=== PATIENT | female | born 1960 | race Caucasian/White ===

== ENCOUNTER → 2016-12-19 | Outpatient (CLI) | payer OTHER ==
[~2016-12-19] MED LIST: BIAXIN500 MG PO; CLARITIN10 MG PO; HYDROCHLOROTHIA25 M1 PO; LOPRESSOR25 MG PO; PROTONIX40 MG PO; PROVENTIL0.09 MG/AC IH; ZOFRAN4 MG PO
== END | disposition home or self-care (01) ==
LOC: MAMMO 11:41
DX: Z12.31 Encounter for screening mammogram for malignant neoplasm of breast (principal)

== ENCOUNTER → 2016-12-30 | Day surgery (SDC) | payer OTHER ==
[~2016-12-30] VITALS: Ht 173.7 cm; Wt 113.4 kg
[~2016-12-30] MED LIST changes: +PRINIVIL10 MG PO
--- NOTE | ~2016-12-30 | PROC NOTE ---
[place], [place] PROCEDURE NOTE [id number] UN[facility] #: [id number] ROOM: DOCTOR: NOLAN BREWER MD BIRTHDATE: [birth year] DOS: 12/30/2016 PREOPERATIVE DIAGNOSIS: Screening examination. POSTOPERATIVE DIAGNOSIS: Colonic polyp (35 cm). PROCEDURE: Colonoscopy with polypectomy x 1. ENDOSCOPIST: Nolan Brewer MD OPHTHALMIC ASST: MS3. ANESTHESIA: MAC. INDICATIONS: This is a 56-year-old lady who is here for a screening examination. The procedure and complications were explained to her in detail preoperatively. Complications that were discussed included, but were not limited to, bleeding, infection, prolonged pain, colon perforation and missed lesions. She agreed to proceed. DESCRIPTION OF PROCEDURE: After identifying the patient, the patient was brought to the endoscopy suite and placed in the left lateral position. After time-out procedure was called, IV sedation was administered and a digital rectal exam was performed. This was within normal limits. An adult colonoscope was now introduced into the anal canal and advanced sequentially into the rectum, sigmoid colon, descending colon, transverse colon and ascending colon, up to the cecum. There was found to be a single polyp at 35 cm that was removed with the help of a snare and sent for histopathological diagnosis. Upon reaching the cecum, the scope was withdrawn. There were no other lesions that could be visualized. The scope was then withdrawn and the patient was taken to the recovery room in stable fashion. There were no complications. Dr. Nolan Brewer, the attending endoscopist was present throughout the operating case. Based on these findings, the patient is recommended to have another colonoscopy within 3-5 years. Nolan Brewer MD CM:PROCNOTE:PROCEDURE NOTE [id number] NOLAN BREWER MD
[2016-12-30 07:27] VITALS: BP 156/98
[2016-12-30 08:47] VITALS: BP 181/108
[2016-12-30 09:00] VITALS: BP 154/87
[2016-12-30 09:13] VITALS: BP 149/94
== END | disposition home or self-care (01) ==
LOC: SDC 12-27 12:30
DX: Z12.11 Encounter for screening for malignant neoplasm of colon (principal); K63.5 Polyp of colon; I10 Essential (primary) hypertension; Z88.8 Allergy status to other drugs, medicaments and biological substances; Z90.49 Acquired absence of other specified parts of digestive tract; Z98.890 Other specified postprocedural states; Z82.49 Family history of ischemic heart disease and other diseases of the circulatory system; F17.210 Nicotine dependence, cigarettes, uncomplicated

== ENCOUNTER → 2018-02-08 | Outpatient (CLI) | payer OTHER ==
[~2018-02-08] MED LIST changes: +K-TAB10 MEQ PO; +NORCO 5-325 TA1 EACH PO; +VITAMIN D5000 UNI1 PO; +ZYRTEC10 MG PO
--- NOTE | ~2018-02-08 | EKG ---
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
[2018-02-08 14:22] LABS: BASO % 0.4 % (0.0-1.0); EOS # 0.2 10*3/uL (0.0-0.4); EOS % 2.7 % (1.0-4.0); HEMATOCRIT 48.2 % (37.0-47.0); HEMOGLOBIN 15.8 g/dl (12.0-16.0); LYMPH # 1.9 10*3/uL (1.3-4.4); LYMPH % 26.4 % (27.0-41.0); MEAN CELL VOLUME 89.3 fl (81.0-99.0); MEAN CORPUSCULAR HGB 29.3 pg (27.0-31.0); MEAN CORPUSCULAR HGB CONC 32.8 g/dl (33.0-37.0); MONO # 0.5 10*3/uL (0.1-1.0); MONO % 6.3 % (3.0-9.0); NEUT # 4.6 10*3/uL (2.3-7.9); NEUT % 63.8 % (47.0-73.0); PLATELET COUNT AUTOMATED 250 10*3/uL (130-400); RED CELL DISTRI WIDTH 13.7 % (0-14.5); WHITE BLOOD COUNT 7.3 10*3/uL (4.8-10.8)
[2018-02-08 14:23] LABS: BILIRUBIN NEGATIVE (NEGATIVE); BLOOD NEGATIVE (NEGATIVE); CLARITY CLEAR (CLEAR); COLOR YELLOW (YELLOW); GLUCOSE NEGATIVE (NEGATIVE); KETONE TRACE (NEGATIVE); LEUKO ESTERASE NEGATIVE (NEGATIVE); NITRITE NEGATIVE (NEGATIVE); UROBILINOGEN 0.2 E.U./dl (0.2-1.0)
[2018-02-08 14:34] LABS: ACT PARTIAL THROMBO TIME 22.7 SECONDS (20.8-31.5); INTERNATIONAL NORM RATIO 0.9 (2.0-3.5)
[2018-02-08 14:39] LABS: ALBUMIN 3.9 gm/dl (3.1-4.5); BILIRUBIN, DIRECT < 0.1 mg/dL (0.0-0.2); BUN 14 mg/dl (7-24); CHLORIDE 103 mmol/L (98-107); CREATININE 0.75 mg/dL (0.55-1.02); POTASSIUM 3.6 mmol/L (3.5-5.1); SGOT/AST 29 IU/L (3-35); SGPT/ALT 49 U/L (12-78); SODIUM 141 mmol/L (136-145)
[2018-02-08 14:41] LABS: ALKALINE PHOSPHATASE 96 U/L (45-117); TOTAL PROTEIN 7.7 gm/dL (6.4-8.2)
[2018-02-08 14:49] LABS: BACTERIA 1+; MUCOUS 2+
== END | disposition home or self-care (01) ==
LOC: LAB 12:26
PROVIDERS: Surgery
DX: K80.80 Other cholelithiasis without obstruction (principal); Z87.891 Personal history of nicotine dependence

== ENCOUNTER → 2018-02-15 | Day surgery (SDC) | payer OTHER ==
[2018-02-08 12:59] VITALS: BP 170/89
[2018-02-15] VITALS (7 sets, daily range): BP systolic 119–162; BP diastolic 63–80
[~2018-02-15] VITALS: Ht 170.1 cm; Wt 108.9 kg
--- NOTE | ~2018-02-15 | O ---
[place], [place] OPERATIVE NOTE NAME: LANRE MABRY UNIT #: [id number] ROOM: DOCTOR: NOLAN BREWER MD BIRTHDATE: [birth year] DOS: 02/15/2018 PREOPERATIVE DIAGNOSIS: Symptomatic gallstones. POSTOPERATIVE DIAGNOSIS: Symptomatic gallstones. PROCEDURE: Laparoscopic cholecystectomy. SURGEON: Nolan Brewer MD MOBILITY ARCHITECT MANAGER: AGNIESZKA. ANESTHESIA: General with endotracheal intubation. INDICATIONS: This is a 57-year-old lady who is undergoing laparoscopic, for possible open cholecystectomy. The procedure and its complications were explained to the patient in detail preoperatively. Complications that were discussed included but were not limited to bleeding, infection, hematoma/seroma/abscess formation, prolonged postoperative pain, damage to underlying vital structures, inadvertent injury to common bile duct and incisional hernia formation. She agreed to proceed. DESCRIPTION OF PROCEDURE: After identifying the patient, the patient was brought to the operating suite and laid in the supine position. After induction of general anesthesia, the parts were then painted and draped in the usual sterile fashion. Timeout procedure was called. An incision was made below the umbilicus in a transverse fashion. The skin and the subcutaneous tissue were incised in the line of the incision. The fascia was incised vertically and 2 stay sutures were taken with 0 Vicryl on either side. The peritoneum was opened and a 12 mm Gael port was introduced into the peritoneal cavity. Thereafter, an epigastric incision of 10 mm and two 5 mm incisions were made in the right upper quadrant and appropriate size ports were introduced. The gallbladder was retracted superiorly and laterally. The cystic duct and the cystic artery were carefully dissected until the critical view of safety was obtained and the triangle of Calot was clearly identified. Thereafter, each of the structures were clipped 3 times and cut between the first and the second clip. The gallbladder was then removed from the bed of the gallbladder with the help of electrocautery. It was placed in an EndoCatch bag and removed from the peritoneal cavity and sent for histopathological diagnosis. Hemostasis was achieved in the liver bed and saline was used for irrigation after hemostasis was confirmed, Additional hemostasis was achieved by placing Surgicel strip in the region of the gallbladder bed. The saline that was used for irrigation was sucked away and hemostasis was confirmed again. Thereafter, the right upper quadrant and the epigastric ports were removed under direct vision and there was no bleeding seen. The umbilical port was also removed with the help of 0 Vicryl. The fascial defect was approximated with the help of [id number] stitch. The skin edges were approximated with the help of 4-0 Vicryl after the edges were infiltrated with 1% plain lidocaine. The patient was extubated uneventfully and brought back to the recovery room in stable fashion. There were no complications. Dr. Nolan Brewer, the attending surgeon, was present [place], [place] OPERATIVE NOTE NAME: LANRE MABRY UNIT #: [id number] ROOM: DOCTOR: NOLAN BREWER MD BIRTHDATE: [birth year] throughout the operating case. Nolan Brewer MD CM:OPRECORD:OPERATIVE NOTE [id number] NOLAN BREWER MD 02/15/18 1027 interface
== END | disposition home or self-care (01) ==
LOC: SDC 02-08 12:30
DX: K80.10 Calculus of gallbladder with chronic cholecystitis without obstruction (principal); I10 Essential (primary) hypertension; E78.5 Hyperlipidemia, unspecified; F17.210 Nicotine dependence, cigarettes, uncomplicated; E66.9 Obesity, unspecified; Z68.37 Body mass index [BMI] 37.0-37.9, adult; Z90.49 Acquired absence of other specified parts of digestive tract; Z98.891 History of uterine scar from previous surgery; Z98.890 Other specified postprocedural states; Z88.5 Allergy status to narcotic agent

== ENCOUNTER → 2024-06-18 | Outpatient (CLI) | payer OTHER | END | disposition home or self-care (01) | LOC: RAD 12:54 | PROVIDERS: ATTEND Nurse Practitioner Women's Health | DX: R06.02 Shortness of breath (principal); R05.9 Cough, unspecified; R06.2 Wheezing; F17.200 Nicotine dependence, unspecified, uncomplicated ==